=== PATIENT | male | born 1945 | race Caucasian/White ===

== ENCOUNTER 2022-07-10 04:22 | Emergency (ER) | payer OTHER ==
[~2022-07-10] VITALS: Ht 170.2 cm; Wt 87.1 kg
--- NOTE | 2022-07-10 04:31 | NUR ---
BIB 79 FROM HOME FOR C/O GEN WEAKNESS FOR THE PAST COUPLE DAYS HAD OPEN HEART SX AT [facility] 2 WEEKS AGO. SUTURES TO CHEST INTACT; NO S/SX OF INFECT. PT A/OX3. TOLERATING O2 3LPM VIA N/C; SATTING AT 94%. CONNECTED PT TO POX AND MONITOR. SAFETY MEASURES IN PLACE.
--- NOTE | 2022-07-10 04:46 | NUR ---
DR. PROSPER PATEL AT PT'S BEDSIDE
--- NOTE | 2022-07-10 05:00 | NUR ---
IV ESTABLISHED RAC #18G S/L
--- NOTE | 2022-07-10 05:02 | NUR ---
BLOOD COLLECTED AND SENT TO LAB
--- NOTE | 2022-07-10 05:05 | NUR ---
PRIMER EXPEDITOR AND DRIER AT PT'S BEDSIDE
[2022-07-10 05:14] LABS: BASOPHILS % (AUTO) 0.5 % (0.0-2.0); EOSINOPHILS % (AUTO) 0.4 % (0.0-6.0); HEMATOCRIT 35 % (39-51); HEMOGLOBIN 11.1 g/dL (13.5-17.5); LYMPHOCYTES % (AUTO) 12.7 % (20.0-44.0); MEAN CORPUSCULAR HGB CONC 32 g/dl (31.0-36.0); MEAN CORPUSCULAR VOLUME 98 fL (80-96); MONOCYTES # (AUTO) 0.6 K/uL (0.1-1.30); MONOCYTES % (AUTO) 7.5 % (2.0-12.0); NEUTROPHILS % (AUTO) 78.9 % (43.0-81.0); PLATELET COUNT (AUTO) 200 K/uL (150-450); RED BLOOD CELL COUNT(AUTO) 3.53 MIL/uL (4.5-6.0); WHITE BLOOD COUNT (AUTO) 7.6 K/uL (4.3-11.0)
[2022-07-10 05:33] LABS: CALCIUM, SERUM 8.9 mg/dL (8.5-10.1); CARBON DIOXIDE 28 mmol/L (21-32); CHLORIDE 107 mmol/L (98-107); CREATININE 0.8 mg/dL (0.6-1.3); GLUCOSE 183 mg/dL (74-106); POTASSIUM 4.3 mmol/L (3.5-5.1); SODIUM SERUM 142 mmol/L (136-145); UREA NITROGEN, BLOOD 16 mg/dL (7-18)
--- NOTE | 2022-07-10 05:37 | NUR ---
COVID ANTIGEN SWAB COLLECTED AND SENT TO LAB
[2022-07-10 05:45] LABS: ALANINE AMINOTRANSFERASE 35 U/L (12-78); ALBUMIN 3.6 g/dL (3.4-5.0); ALKALINE PHOSPHATASE 97 U/L (46-116); ASPARTATE AMINOTRANSFERASE 23 U/L (15-37); BILIRUBIN,DIRECT 0.2 mg/dL (0.0-0.2); BILIRUBIN,TOTAL 0.8 mg/dL (0.2-1.0); TOTAL PROTEIN, SERUM 6.7 g/dL (6.4-8.2)
--- NOTE | 2022-07-10 05:45 | NUR ---
UPDATED SHAHRAM (SON) ON PT'S CONDITION.
--- NOTE | 2022-07-10 05:49 | NUR ---
TROPONIN 139; DR. PROSPER PATEL AWARE
--- NOTE | 2022-07-10 06:33 | NUR ---
SPOKE TO IRIS AT [facility]. WILL FAX CLINICALS
--- NOTE | 2022-07-10 07:09 | NUR ---
REPORT GIVEN TO JASON MADRIGAL FOR [facility]
--- NOTE | 2022-07-10 08:39 | NUR ---
PT IS BEING TRANSFERED TO [facility] UNDER DR. THAKUR PER "JASON" [place]. ON THE PHONE WITH DR. THAKUR.
--- NOTE | 2022-07-10 10:09 | NUR ---
FERNANDO FROM [facility]. STILL WAITING ON BED.
--- NOTE | 2022-07-10 11:35 | NUR ---
FOLLOWED UP WITH [facility], STILL WAITING ON BED.
[2022-07-10] MEDS ORDERED: PIPERACILLIN /TAZOBACTAM 3.375 G in IV D5W 50 ML IV ONE (13:30)
[2022-07-10] MEDS ORDERED: ASPIRIN 81 MG TAB.CHEW PO ONE ×2 (13:30→14:00)
[2022-07-10] MEDS ORDERED: FUROSEMIDE 40 MG/4 ML VIAL IV ONE (13:30)
[2022-07-10] MEDS ORDERED: PIPERACILLIN /TAZOBACTAM 3.375 G VIAL IV ONE (13:43)
[2022-07-10] MEDS ORDERED: FUROSEMIDE 40 MG/4 ML VIAL ONE (13:43)
[2022-07-10] MEDS ORDERED: ASPIRIN 81 MG TAB.CHEW ONE (13:44)
--- NOTE | 2022-07-10 13:53 | NUR ---
FOLLOWED UP WITH [facility], NO BEDS YET.
[2022-07-10] MEDS ORDERED: ATORVASTATIN 40 MG TABLET PO SCH (14:00)
[2022-07-10] MEDS ORDERED: METOPROLOL SUCCINATE 50 MG TAB.SR.24H PO SCH (14:00)
[2022-07-10] MEDS ORDERED: CLOPIDOGREL BISULFATE 75 MG TABLET PO ONE (14:00)
--- NOTE | 2022-07-10 14:20 | NUR ---
ACCEPTED AT [facility] [phone] THAKUR
--- NOTE | 2022-07-10 14:27 | NUR ---
[facility] TRANSPORT ETA 1545 VIA [facility].
[2022-07-10] MEDS ORDERED: CLOPIDOGREL BISULFATE 75 MG TABLET ONE (14:29)
[2022-07-10] MEDS ORDERED: METOPROLOL TARTRATE 50 MG TABLET ONE (14:29)
[2022-07-10] MEDS ORDERED: ATORVASTATIN 40 MG TABLET ONE (14:29)
[2022-07-10] MEDS ORDERED: METOPROLOL SUCCINATE 25 MG TAB.SR.24H ONE (14:34)
--- NOTE | 2022-07-10 14:41 | NUR ---
URINE SAMPLE COLLECTED AND SENT TO LAB
--- NOTE | 2022-07-10 15:41 | NUR ---
EMT's PRESENT TO TRANSFER TO [facility], REPORT GIVEN TO TERESA NYE FOR ROOM 610-B
[2022-07-10 15:46] VITALS: BP 132/84
== END 2022-07-10 15:49 | disposition short-term general hospital (02) ==
LOC: ER 04:24
DX: I11.0 Hypertensive heart disease with heart failure (principal); I50.9 Heart failure, unspecified; Z95.1 Presence of aortocoronary bypass graft; E11.65 Type 2 diabetes mellitus with hyperglycemia; R77.8 Other specified abnormalities of plasma proteins; Z20.822 Contact with and (suspected) exposure to COVID-19; R91.8 Other nonspecific abnormal finding of lung field; R94.31 Abnormal electrocardiogram [ECG] [EKG]
CPT/HCPCS: 99285; 96374; 71045; 96375; 87426; 93005; 85025; 80048; 80076; 36415; 84484 ×3; 85730; 83880; 82962; J1940; J2543; J7060; C9803